=== PATIENT | male | born 1945 | race Caucasian/White ===

== ENCOUNTER 2021-01-29 07:06 | Inpatient (IN) ==
--- NOTE | 2021-01-10 11:19 | PAT Medication Instructions ---
Medication Instructions Date of Service January 10, 2021 Home Medications Lacto.acidophilus-Bif.animalis [Super Probiotic] 1 cap PO QAM acai siddiqi extract 1,000 mg PO QAM apalutamide [Erleada] 60 mg PO TID ascorbic acid (vitamin C) [Vitamin C] 1 g PO QAM aspirin 81 mg PO HS calcium 500 mg PO QAM cholecalciferol (vitamin D3) [Vitamin D3] 125 mcg PO QAM docusate sodium [Stool Softener] 200 mg PO QAM eqrsbslv-nooc-ktmnbc-hyalur ac [Joint Support] 1 cap PO BID leuprolide (6 month) [Lupron Depot (6 Month)] 45 mg IM UD loratadine 10 mg PO QAM magnesium 100 mg PO BID metoprolol tartrate 25 mg PO BID multivitamin 1 tab PO QAM nitroglycerin [Nitrostat] 0.4 mg SUBLINGUAL UD PRN omega-3 fatty acids-fish oil [[place] 3 Fish Oil] 2 cap PO QAM pantoprazole 40 mg PO QAM simvastatin 10 mg PO HS tamsulosin 0.4 mg PO HS vitamin E 400 unit PO QAM zinc 50 mg PO QAM Continue as directed leuprolide (6 month) [Lupron Depot (6 Month)] 45 mg IM UD nitroglycerin [Nitrostat] 0.4 mg SUBLINGUAL UD PRN (if needed) ASK your prescriber and surgeon apalutamide [Erleada] 60 mg PO TID aspirin 81 mg PO HS STOP taking 2 weeks before surgery (or as soon as possible if surgery is within 2 weeks) acai siddiqi extract 1,000 mg PO QAM kqrhizon-rlcg-fgpzrb-hyalur ac [Joint Support] 1 cap PO BID omega-3 fatty acids-fish oil [[place] 3 Fish Oil] 2 cap PO QAM vitamin E 400 unit PO QAM DO NOT take the morning of surgery Lacto.acidophilus-Bif.animalis [Super Probiotic] 1 cap PO QAM ascorbic acid (vitamin C) [Vitamin C] 1 g PO QAM calcium 500 mg PO QAM cholecalciferol (vitamin D3) [Vitamin D3] 125 mcg PO QAM docusate sodium [Stool Softener] 200 mg PO QAM loratadine 10 mg PO QAM magnesium 100 mg PO BID multivitamin 1 tab PO QAM zinc 50 mg PO QAM Take morning of surgery With a small sip of water, OTHERWISE NOTHING TO EAT OR DRINK AFTER MIDNIGHT: metoprolol tartrate 25 mg PO BID pantoprazole 40 mg PO QAM Take evening before surgery magnesium 100 mg PO BID metoprolol tartrate 25 mg PO BID simvastatin 10 mg PO HS tamsulosin 0.4 mg PO HS Other Notes If you have any questions please call us at [phone] or [phone] or [phone] or [phone]
--- NOTE | 2021-01-15 11:34 | Anesthesiology Consultation ---
Date of Service January 15, 2021 Assessment & Plan (1) Encounter for pre-operative examination: Chart Review Chart Review: Acceptable Risk for Surgery (pending preop UA, surgeon ordered PCP clearance with response on anemia and CXR findings, and preop Covid testing results ) and Patient seen in Pre Admission Testing Pt could not give UA at PAT- was given order and supplies and will drop off in [facility]. -Awaiting surgeon ordered PCP clearance scheduled 01/21/21- will send note re: anemia and CXR findings to address at clearance appt Cardio Clearance letter 12/29/20= "low to intermediate cardiac risk." Last seen by cardio 12/23/20= presents for follow up visit. Continue current cardiac meds. Follow up with PCP. All recent testing reviewed by cardio. Monitor BP at home. Hx of carotid narrowing- ordered carotid US. (Not scheduled until 01/29/21- no carotid bruits noted on 01/15/21 PAT exam) Per PAT appointment 01/15/2021, patient denies any recent travel. No known Covid infection in the past 90 days. Only wears mask when requiredavoids large crowds in public settings. Patient vaccinated for Covid. No known Covid positive contacts or Covid related symptoms. Preop Covid testing scheduled 01/27/21= will await results. Educated on importance of self quarantining, social distancing and wearing mask in public both for the patient after Covid testing done Teaching & Discussion Pre-Anesthesia Teaching/Discussion Notes: Instructed NPO after midnight before surgery,except medications with 15 cc of water. Medication instructions provided according to the PAT guidelines. History Surgery Operation Date: 01/29/21 10:05 Proposed Procedures p L3-L5 Decompression Fusion;Spinal Cord Monitoring - Christophe Mariee, Height/Weight Height: 5 ft 11 in Weight: 86.4 kg Allergies Allergy/AdvReac Type Severity Reaction Status Date / Time Penicillins Allergy Intermediate HALLUCINATI Verified 01/09/21 11:28 ONS Medications Home Medications Medication Instructions Recorded Confirmed Last Taken Lacto.acidophilus-Bif.animalis 1 cap PO QAM 01/09/21 01/09/21 Unknown [Super Probiotic] acai siddiqi extract 1,000 mg PO QAM 01/09/21 01/09/21 Unknown apalutamide [Erleada] 60 mg PO TID 01/09/21 01/09/21 Unknown ascorbic acid (vitamin C) [Vitamin 1 g PO QAM 01/09/21 01/09/21 Unknown C] aspirin 81 mg PO HS 01/09/21 01/09/21 Unknown calcium 500 mg PO QAM 01/09/21 01/09/21 Unknown cholecalciferol (vitamin D3) 125 mcg PO QAM 01/09/21 01/09/21 Unknown [Vitamin D3] docusate sodium [Stool Softener] 200 mg PO QAM 01/09/21 01/09/21 Unknown eszfgzws-mrjo-ksrpmk-hyalur ac 1 cap PO BID 01/09/21 01/09/21 Unknown [Joint Support] leuprolide (6 month) [Lupron Depot 45 mg IM UD 01/09/21 01/09/21 Unknown (6 Month)] loratadine 10 mg PO QAM 01/09/21 01/09/21 Unknown magnesium 100 mg PO BID 01/09/21 01/09/21 Unknown metoprolol tartrate 25 mg PO BID 01/09/21 01/09/21 Unknown multivitamin 1 tab PO QAM 01/09/21 01/09/21 Unknown nitroglycerin [Nitrostat] 0.4 mg SUBLINGUAL UD PRN 01/09/21 01/09/21 Unknown omega-3 fatty acids-fish oil 2 cap PO QAM 01/09/21 01/09/21 Unknown [[place] 3 Fish Oil] pantoprazole 40 mg PO QAM 01/09/21 01/09/21 Unknown simvastatin 10 mg PO 01/09/21 01/09/21 Unknown tamsulosin 0.4 mg PO 01/09/21 01/09/21 Unknown vitamin E 400 unit PO QAM 01/09/21 01/09/21 Unknown zinc 50 mg PO QAM 01/09/21 01/09/21 Unknown Past Medical History Medical History Aortic stenosis S/p bioprosthetic AVR 2017 CAD (coronary artery disease) S/p CABG 2018- 1 vessel S/p cardiac stent 2009 to Cx artery Degenerative disc disease History of kidney cancer s/p left nephrectomy (1987) Hyperlipidemia Hypertension FOLLOWS WITH DR. DIEGO IN [place] Prostate cancer Dx'ed 2000 - s/p prostatectomy ; s/p XRT in 2004 Currently on Lupron injections and Erleada Urinary incontinence Exercise / Class Metabolic Activity III < 4 Walking/Shop/Light housework (no chest pain or SOB with short distancs, flat surface ambulation- uses walker secondary to lumbar issues ) Past Family History Family History Other No family history of adverse response to anesthesia Past Surgical History Surgical History Aortic valve replaced 2018 AT [facility] H/O left nephrectomy H/O prostate biopsy H/O vasectomy History of bladder surgery [facility] SURGERY IN [facility]>2 PROCEDURES (RECENT PROCEDURES) History of cardiac cath 3 WEEKS AGO AT [facility] History of cholecystectomy History of colonoscopy History of coronary artery bypass graft 2018 AT [facility] History of cystoscopy MULTIPLE History of heart artery stent 1 STENT PLACED 2009 History of prostatectomy History of tonsillectomy History of tooth extraction Past Anesthesia History No Hx of Anesthesia Complications and No Family Hx of Anesthesia Complications (with exception to brother- PONV ) History of PONV No Hx of Motion Sickness and History of PONV (one episdoe with cardiac stent placement in 2009- no issues ) Social History Smoking Status: Never smoker Hx Alcohol Use: No substance use type: does not use Review of Systems Hx of snoring in the past- no recent issues with snoring. Patient denies chest pain, shortness of breath, dyspnea on exertion, reflux, cough, wheezing, palpitations. No hx of seizures, stroke. No hx of blood clots or blood transfusions Physical Exam Vital Signs VITALS BP 131/69 P 70 TEMP 98.0 SP02 97% RESP 16 Constitutional no acute distress ENMT Mouth: no TMJ clicking Thyromental Distance: > or= 3.5 Finger Breadths (4.0) Mallampati Class: II Full dentures on top and bottom Neck neck extension not limited Respiratory normal respiratory effort; no respiratory distress Auscultation: lungs clear to auscultation bilaterally; no wheezes Cardiovascular Rate/Rhythm: regular rate and regular rhythm Heart Sounds: no murmur Vessels: no carotid bruit Musculoskeletal Spine: no pain with cervical ROM Extremities: extremities normal to inspection Psychiatric Orientation: alert Lab Results Anesthesia Preop Results Results Anesthesia Widget: WBC 9.83 K/uL (4.8-10.8) 01/15/21 Hgb 9.7 g/dL (14.0-18.0) L 01/15/21 Hct 31.4 % (42-52) L 01/15/21 Plt 524 K/uL (130-400) H 01/15/21 Na 137 mmol/L (136-145) 01/15/21 K 4.6 mmol/L (3.5-5.1) 01/15/21 Cl 103 mmol/L (98-107) 01/15/21 CO2 28 mmol/L (21-32) 01/15/21 BUN 20 mg/dl (7-18) H 01/15/21 Creat 0.84 mg/dl (0.6-1.4) 01/15/21 Glucose Level 126 mg/dl (70-99) H 01/15/21 PT 11.1 Seconds (9.0-12.0) 01/15/21 PTT 29.0 Seconds (21.0-31.0) 01/15/21 INR 1.1 (0.9-1.1) 01/15/21 Blood Type B Negative 01/15/21 Antibody Screen NEGATIVE 01/15/21 Lab Comments: Surgeon office informed of anemia Testing Electrocardiogram Date: 12/23/20 Sinus rhythm at 81 bpm. Vertical axis. Normal variant of EKG. Chest X-Ray Date: 01/15/21 Questionable opacity at the right infrahilar region which could represent atelectasis. Pneumonia is also possible in appropriate clinical settings. Status post aortic valve placement. Atherosclerosis. Echocardiogram Date: 12/10/20 EF: 55 to 60% LV Function: normal Other Findings: + diastolic dysfunction (Grade 1); no LVH Abnormal septal motion. Mild right ventricular enlargement with otherwise normal cardiac chamber dimensions. There is an aortic valve replacement, trace aortic insufficiency. Bioprosthetic aortic valvepeak gradient 18 mmHg and a mean gradient of 9 mmHg. Mild MR. Mild to moderate TR. Mild pulmonary wyossiifelmd40-90 mmHg. Stress Test Date: 12/10/20 Type: nuclear Based upon EKG criteria, this test is negative. Based upon the nuclear imaging findings, there is a lateral wall ischemia. Study is moderately abnormal. It has changed from previous studies. Cardiac catheterization or a follow-up appointment to discussed results is recommended. Cardiac Catheterization Date: 12/18/20 Proximal RCA lesion 30% stenosis. Distal RCA lesion 40% stenosis. Proximal to mid LAD 50% stenosis. Mid LAD lesion is 100% stenosis. Patent BURCIAGA to LAD, otherwise mild residual CAD. No evidence of aortic insufficiency.
[~2021-01-29 07:06] MED LIST: ACETAMINOPHEN 500 MG TAB PO SCH; CLINDAMYCIN 600 MG/54 ML BAG IV SCH; CeleBREX 200 MG CAP PO SCH; GABAPENTIN 300 MG CAP PO SCH; LR 15ML/HR IV SCH
[2021-01-29] MEDS ORDERED: fentaNYL citrate 100 MCG/2 ML VIAL ONE (08:11)
[2021-01-29] MEDS ORDERED: PROPOFOL IV EMULSION 10 MG/ML 20 ML VIAL IV ONE (08:11)
[2021-01-29] MEDS ORDERED: DEXAMETHASONE SOD INJ 4 MG/ML VIAL ONE (08:11)
[2021-01-29] MEDS ORDERED: LIDOCAINE 2% 2 ML VIAL/AMP(20MG/ML) INFIL ONE (08:11)
[2021-01-29] MEDS ORDERED: HYDROmorphone INJ 2 MG/ML SYR/VIAL ONE (08:11)
[2021-01-29] MEDS ORDERED: MIDAZOLAM HCL 1 MG/ML 2ML VIAL ONE (08:11)
[2021-01-29] MEDS ORDERED: ROCURONIUM BROMIDE 10 MG/ML 5 ML VIAL IV ONE (08:13)
[2021-01-29] MEDS ORDERED: ePHEDrine sulfate 50 MG/ML AMP IV PRN (09:16)
[2021-01-29] MEDS ORDERED: ATROPINE SULFATE 0.1 MG/ML 10ML SYR IV PRN (09:16)
[2021-01-29] MEDS ORDERED: HYDROmorphone INJ 2 MG/ML SYR/VIAL IV PRN (09:16)
[2021-01-29] MEDS ORDERED: fentaNYL citrate 100 MCG/2 ML VIAL IV PRN (09:16)
[2021-01-29] MEDS ORDERED: ONDANSETRON INJ 2 MG/ML 2 ML VIAL IV PRN ×2 (09:16→13:26)
--- NOTE | 2021-01-29 09:40 | History & Physical Bridge Note ---
Date of Service January 29, 2021 History & Physical Bridge Note I have examined the patient, reviewed the History & Physical and in the interval since the performance of the History & Physical I have noted the following changes of clinical significance: no changes noted
--- NOTE | 2021-01-29 09:41 | History & Physical Report ---
Date of Service January 29, 2021 Assessment & Plan (1) Neurogenic claudication due to lumbar spinal stenosis: Plan: L3-L5 decompression fusion History of Present Illness Chief Complaint: Back and bilateral leg pain Primary Care Provider: Etienne Nelson This is a 75-year-old male presents with chronic persistent back and bilateral leg pain. After failing course of nonoperative care is here for surgical intervention. Allergies Allergy/AdvReac Type Severity Reaction Status Date / Time Penicillins Allergy Intermediate HALLUCINATI Verified 01/29/21 07:38 ONS Home Medications Medication Instructions Recorded Confirmed Type Lactobacillus 1 cap PO QAM 01/09/21 01/29/21 History acidophilus-Bifidobac.animalis 20 billion cell capsule (Super Probiotic) acai siddiqi extract 500 mg capsule 1,000 mg PO QAM 01/09/21 01/29/21 History apalutamide 60 mg tablet (Erleada) 60 mg PO TID 01/09/21 01/29/21 History ascorbic acid (vitamin C) 1,000 mg 1 g PO QAM 01/09/21 01/29/21 History tablet (Vitamin C) aspirin 81 mg tablet 81 mg PO HS 01/09/21 01/29/21 History calcium 500 mg tablet 500 mg PO QAM 01/09/21 01/29/21 History cholecalciferol (vitamin D3) 125 125 mcg PO QAM 01/09/21 01/29/21 History mcg (5,000 unit) tablet (Vitamin D3) docusate sodium 100 mg tablet 200 mg PO QAM 01/09/21 01/29/21 History (Stool Softener) glucosamin 375 mg-chond 300 1 cap PO BID 01/09/21 01/29/21 History mg-collagen 50 mg-hyaluronic acid 2 mg cap leuprolide (6 month) 45 mg 45 mg IM UD 01/09/21 01/29/21 History intramuscular syringe kit (Lupron Depot) loratadine 10 mg tablet 10 mg PO QAM 01/09/21 01/29/21 History magnesium 100 mg tablet 100 mg PO BID 01/09/21 01/29/21 History metoprolol tartrate 25 mg tablet 25 mg PO BID 01/09/21 01/29/21 History multivitamin 1 tab PO QAM 01/09/21 01/29/21 History nitroglycerin 0.4 mg sublingual 0.4 mg SUBLINGUAL UD PRN 01/09/21 01/29/21 History tablet (Nitrostat) omega-3 fatty acids-fish oil 684 2 cap PO QAM 01/09/21 01/29/21 History mg-1,200 mg capsule,delayed release pantoprazole 40 mg tablet,delayed 40 mg PO QAM 01/09/21 01/29/21 History release simvastatin 10 mg tablet 10 mg PO HS 01/09/21 01/29/21 History tamsulosin 0.4 mg capsule 0.4 mg PO HS 01/09/21 01/29/21 History vitamin E 200 unit tablet 400 unit PO QAM 01/09/21 01/29/21 History zinc 50 mg tablet 50 mg PO QAM 01/09/21 01/29/21 History Past Med/Surg History Medical History Aortic stenosis S/p bioprosthetic AVR 2017 CAD (coronary artery disease) S/p CABG 2018- 1 vessel S/p cardiac stent 2009 to Cx artery Degenerative disc disease History of kidney cancer s/p left nephrectomy (1987) Hyperlipidemia Hypertension FOLLOWS WITH DR. DIEGO IN [place] Prostate cancer Dx'ed 2000 - s/p prostatectomy ; s/p XRT in 2004 Currently on Lupron injections and Erleada Urinary incontinence Surgical History Aortic valve replaced 2017 AT [facility] H/O left nephrectomy H/O prostate biopsy H/O vasectomy History of bladder surgery SPHINCTER SURGERY IN [facility]>2 PROCEDURES (RECENT PROCEDURES) History of cardiac cath 3 WEEKS AGO AT [facility] History of cholecystectomy History of colonoscopy History of coronary artery bypass graft 2018 AT [facility] History of cystoscopy MULTIPLE History of heart artery stent 1 STENT PLACED 2009 History of prostatectomy History of tonsillectomy History of tooth extraction Family History Other No family history of adverse response to anesthesia Social History Smoking Status: Never smoker Second Hand Exposure: No; Hx Alcohol Use: No Preferred Language: Romansh Datastage Developer Required: No Beliefs That Will Affect Care: None Current Living Situation: Spouse Feels Safe at Home: Yes Safety Concerns: Feels Safe At This Time Assistive Devices: Denture - Upper, Denture - Lower, Glasses, Hearing Aid - Bilateral and Walker Physical Exam Physical Exam: Patient is alert and oriented Heart regular in rhythm Lungs clear to auscultation Results [facility] ([facility]) Vital Signs (Past 12 Hours) Vital Signs Temp Pulse Resp BP Pulse Ox 01/29/21 07:56 36.9 C 75 16 143/72 H 96
[2021-01-29] MEDS ORDERED: BUPIVACAINE/EPINEPHRINE 0.5% MPF 1:200,000 30 ML VIAL ONE (09:53)
[2021-01-29] MEDS ORDERED: FLOSEAL HEMOSTATIC MATRIX 10ML TOP ONE (11:45)
[2021-01-29] MEDS ORDERED: NEOSTIGMINE METHYLSULFATE 1 MG/ML 10ML VIAL ONE (11:46)
[2021-01-29] MEDS ORDERED: GLYCOPYRROLATE 0.2 MG/ML VIAL ONE (11:46)
--- NOTE | 2021-01-29 11:55 | Operative Report ---
Post Operative Report Pre & Post Diagnosis Operation Date: 01/29/21 09:05 Pre-Op Diagnosis: Neurogenic Claudication due to Lumbar Spinal Stenosis Post-Op Diagnosis: Neurogenic Claudication due to Lumbar Spinal Stenosis I identified the patient and participated in the time-out.: Yes Procedure Operation Date: 01/29/21 09:05 Actual Procedures #1 lumbar decompression bilateral medial facetectomies and foraminotomies L2-3, L3-4 and L4-5. #2 posterior spinal fusion L3 445. #3 placement posterior instrumentation L3-4 L4-5 per #4 interbody fusion L4-5. #5 placement peek cage 12 x 26 mm at L4-5. #6 placement locally harvested morselized autograft in the posterior gutters. #7 placement infuse collagen sponge, master graft in the posterior lateral gutters and I factor interbody space. Surgeon Christophe Mariee DO Assistant Track And Field Coach Becky Bynum Estimated Blood Loss 100 Findings Consistent with Post-Op Diagnosis Specimens None Indications This is a 75-year-old male presents with above-mentioned diagnosis after failing course of nonoperative care is here for the above-mentioned procedure. Description of Procedure Patient was met with identified informed consent obtained. Patient was then taken to the operative suite underwent a patient placed in prone position injectable top less than frame. All bony prominences well-padded eyes inspected to ensure no external proximal spine. This point the lumbar spine was prepped and draped in a sterile fashion. Sharp dissection with the assistance pericardial form down to and exposing the lamina and transverse processes of L3 L4-5 bilaterally. From caudal cephalad fashion complete laminectomy of L4 L3 and partial laminectomy of L2 was performed including bilateral medial facetectomies and foraminotomies addressing severe spinal stenosis. Pedicle screws were then placed in L3-L4-L5 bilaterally with assistance of fluoroscopy the proper sized prosper placed. By way of a transforaminal portion radically discectomy of L4-5 was performed endplates curetted to subcortical being bone and a 12 x 26 mm peek cage filled I factor tapped in position. The rods then locked in final position bilaterally. The transverse processes of L3 and L4 and L5 burred to subcortically bone. Infuse collagen sponge master graft local autograft was placed in the posterior gutters. 15 round NATALIE drain inserted. The incision was then closed with 1 Vicryl fascia 2-0 Vicryl subcutaneously and 4 Monocryl for final skin closure. Steri-Strip sterile dressings placed. Patient waken taken PACU stable condition. Please note spinal cord monitoring was utilized at the procedure no changes noted. Lastly Becky Bynum was present at the entire surgery involved the patient positioning complex portions of the surgery and fascial closure. I attest to the content of the Intraoperative Record and any orders documented therein. Any exceptions are noted below.
--- NOTE | 2021-01-29 12:47 | Fluoroscopy Report ---
FL lumbar spine 2-3V CLINICAL HISTORY: Spinal decompression and fusion COMPARISON STUDY: None FLUOROSCOPY TIME: 19 seconds. NUMBER OF FLUOROSCOPIC IMAGES: 2 FINDINGS: 2 intraoperative fluoroscopic spot images demonstrate a lower lumbar discectomy and interbo dy fusion with posterior 3 level pedicle screw fixation. Is a is unclear from the intraoperative imag es whether the surgery was performed at the L3-5 level or L4-S1 level. Correlation with prior radiogr aphs would be necessary to confirm the level of surgery. IMPRESSION: Intraoperative fluoroscopic spot images demonstrating a spinal decompression and fusion. ACT 112: Negative or not required by law. Electronically signed by: Joey Santana M.D. 01/29/2021 12:45 PM
[2021-01-29] MEDS ORDERED: PROMETHAZINE HCL 12.5 MG in SODIUM CHLORIDE 0.9% 50 ML IV STA (12:51)
--- NOTE | 2021-01-29 13:04 | Anesthesiology Progress Note ---
Date of Service January 29, 2021 Anesthesia Post Procedure Vital Signs Vital Signs: Temp Pulse Resp BP Pulse Ox 01/29/21 12:55 72 14 156/74 H 97 01/29/21 12:45 36.1 C L 76 14 159/79 H 98 01/29/21 12:35 74 12 142/65 H 95 01/29/21 12:25 73 14 139/65 99 01/29/21 12:15 74 12 131/69 100 01/29/21 12:09 36.3 C L 74 12 125/64 100 01/29/21 07:56 36.9 C 75 16 143/72 H 96 Pain Intensity Other: Pain Intensity: 8 Transfer of Care Handoff Completed per policy Notes Mental Status: alert / awake / arousable and participated in evaluation Patient Amnestic to Procedure: Yes Nausea / Vomiting: adequately controlled Pain: adequately controlled Airway Patency, RR, SpO2: stable & adequate BP & HR: stable & adequate Hydration State: stable & adequate Anesthetic Complications: no major complications apparent
[2021-01-29] MEDS ORDERED: diphenhydrAMINE Capsule 25 MG CAP PO PRN (13:26)
[2021-01-29] MEDS ORDERED: SOD PHOSPHATE/SOD BIPHOSPHATE ENEMA 132 ML BTL PR PRN (13:26)
[2021-01-29] MEDS ORDERED: FAMOTIDINE 20 MG TAB PO PRN (13:26)
[2021-01-29] MEDS ORDERED: LORazepam 0.5 MG/1 ML VIAL IV PRN (13:26)
[2021-01-29] MEDS ORDERED: ALUMINUM/MAGNESIUM SUSP 30 ML UDC PO PRN (13:26)
[2021-01-29] MEDS ORDERED: METOCLOPRAMIDE HCL INJ 5 MG/ML 2 ML VIAL IV PRN (13:26)
[2021-01-29] MEDS ORDERED: DO NOT ADMINISTER FLU VACCINE PRN (13:26)
[2021-01-29] MEDS ORDERED: ACETAMINOPHEN 1,000 MG/100 ML VIAL IV PRN (13:26)
[2021-01-29] MEDS ORDERED: ONDANSETRON 4 MG OD TAB PO PRN (13:26)
[2021-01-29] MEDS ORDERED: PROMETHAZINE HCL 12.5 MG in SODIUM CHLORIDE 0.9% 50 ML IV PRN (13:26)
[2021-01-29] MEDS ORDERED: hydrOXYzine HCl 25 MG TAB PO PRN (13:26)
[2021-01-29] MEDS ORDERED: MAGNESIUM HYDROXIDE SUSP 30 ML UDC PO PRN (13:26)
[2021-01-29] MEDS ORDERED: NITROGLYCERIN SL 0.4 MG/TAB TAB SL PRN (13:26)
[2021-01-29] MEDS ORDERED: DO NOT ADMINISTER PNEUMOCOCCAL VACCINE PRN (13:26)
[2021-01-29] MEDS ORDERED: NALOXONE HCL 0.4 MG/1 ML VIAL/CARP IV PRN (13:26)
[2021-01-29] MEDS ORDERED: HYDROmorphone INJ 0.5 MG/0.5 ML SYR IV PRN (13:26)
[2021-01-29] MEDS ORDERED: LORazepam 0.5 MG TAB PO PRN (13:26)
[2021-01-29] MEDS ORDERED: HYDROmorphone INJ 1 MG/ML SYRINGE IV PRN (13:26)
[2021-01-29] MEDS: SODIUM CHLORIDE 0.9% 1000ML 1,000 ML IV SCH ×2 (14:14→23:42)
--- NOTE | 2021-01-29 14:44 | Consultation ---
Date of Consultation January 29, 2021 Assessment & Plan (1) Status post lumbar surgery: (2) Neurogenic claudication due to lumbar spinal stenosis: Post op day# 0 S/P L2-L5 decompression and fusion by Dr Mariee EBL #100 mL -pain management per ortho -wound management per ortho -PT/OT as appropriate -DVT prophylaxis per ortho -incentive spirometry -monitor H&H for acute blood loss anemia; preop Hgb: 9.7 (3) CAD (coronary artery disease): H/O CABG 2018 Denies chest pain, shortness of breath Continue aspirin, metoprolol tartrate, simvastatin (4) Aortic stenosis: S/P bioprosthetic AVR in 2018 (5) Hypertension: Continue metoprolol tartrate (6) History of kidney cancer: (7) Solitary kidney: S/p left nephrectomy Preop creatinine: 0.8 (8) Prostate cancer: S/p prostatectomy, radiation Erleada, Lupron on hold Continue tamsulosin DVT Prophylaxis SCDs per Ortho spine Disposition per primary service Follows with Dr Etienne Nelson in [place], [place] for routine care Pt was seen and care coordinated with Dr Hager. See addendum Thank you for this consultation. We will follow the patient with you during their hospital stay. You can reach a [facility]02 via [facility] Supervising Physician Co-Signing Physician Notes Patient is a 75-year-old male with history of coronary artery disease S/P CABG, aortic stenosis, history of prostate cancer, hypertension, hyperlipidemia and other medical problems was consulted for postop medical management after having L2-L5 decompression and fusion surgery by Dr. Mariee. Patient is doing well postoperatively. He denies any significant pain at surgical site. Also denies any chest pain, shortness of breath, dizziness, nausea, abdominal pain. On exam patient is moderately built and nourished, no apparent distress, normocephalic atraumatic, lungs-normal breath sounds, clear to auscultation,+ CABG scar, S1- S2,+ murmur, no pedal edema, abdomen soft, nontender, normal bowel sounds, back- surgical site in dressing, alert, awake, oriented, grossly no focal deficits. S/P Lumbar decompression fusion surgery pod#0 monitor for postop anemia. Continue bowel regimen to prevent constipation. DVT prophylaxis, activity as per primary team. Continue home medications for coronary artery disease. Monitor renal function given history of nephrectomy. I personally reviewed the record. Patient is interviewed and examined at bedside. Patient's care is coordinated with Tisha Mejia PA-C. Please refer to the documentation above for details of patient's presentation and for discussion of other issues. History of Present Illness Requesting Physician: Dr. Mariee Reason for Consultation: Postop medical management Attending Physician: Christophe Mariee, DO History of Present Illness Patient is 75-year-old male with PMH CAD s/p CABG in 2018, aortic stenosis s/p bioprosthetic aortic valve replacement in 2018, kidney CA s/p left nephrectomy, prostate CA s/p prostatectomy and radiation, HTN, HLD seen in consultation for postop medical management s/p L2-L5 decompression and fusion today by Dr. Mariee. Postop patient reports still feeling drowsy. States has slight nausea, no vomiting. Has not drank or eaten yet post op. Has Barron cath in place. Denies any current pain, lower extremity pain or paresthesias. Denies fever/chills, diaphoresis, diarrhea, WILBURN, dizziness, s yncope, vision changes, neck pain, CP, SOB, orthopnea, palpitations, cough, sore throat, otalgia, rhinorrhea, abdominal pain, extremity edema, rashes, urinary symptoms. Allergies Allergy/AdvReac Type Severity Reaction Status Date / Time Penicillins Allergy Intermediate HALLUCINATI Verified 01/29/21 07:38 ONS Home Medications Medication Instructions Recorded Confirmed Type Lactobacillus 1 cap PO QAM 01/09/21 01/29/21 History acidophilus-Bifidobac.animalis 20 billion cell capsule (Super Probiotic) acai siddiqi extract 500 mg capsule 1,000 mg PO QAM 01/09/21 01/29/21 History apalutamide 60 mg tablet (Erleada) 60 mg PO TID 01/09/21 01/29/21 History ascorbic acid (vitamin C) 1,000 mg 1 g PO QAM 01/09/21 01/29/21 History tablet (Vitamin C) aspirin 81 mg tablet 81 mg PO HS 01/09/21 01/29/21 History calcium 500 mg tablet 500 mg PO QAM 01/09/21 01/29/21 History cholecalciferol (vitamin D3) 125 125 mcg PO QAM 01/09/21 01/29/21 History mcg (5,000 unit) tablet (Vitamin D3) docusate sodium 100 mg tablet 200 mg PO QAM 01/09/21 01/29/21 History (Stool Softener) glucosamin 375 mg-chond 300 1 cap PO BID 01/09/21 01/29/21 History mg-collagen 50 mg-hyaluronic acid 2 mg cap leuprolide (6 month) 45 mg 45 mg IM UD 01/09/21 01/29/21 History intramuscular syringe kit (Lupron Depot) loratadine 10 mg tablet 10 mg PO QAM 01/09/21 01/29/21 History magnesium 100 mg tablet 100 mg PO BID 01/09/21 01/29/21 History metoprolol tartrate 25 mg tablet 25 mg PO BID 01/09/21 01/29/21 History multivitamin 1 tab PO QAM 01/09/21 01/29/21 History nitroglycerin 0.4 mg sublingual 0.4 mg SUBLINGUAL UD PRN 01/09/21 01/29/21 History tablet (Nitrostat) omega-3 fatty acids-fish oil 684 2 cap PO QAM 01/09/21 01/29/21 History mg-1,200 mg capsule,delayed release pantoprazole 40 mg tablet,delayed 40 mg PO QAM 01/09/21 01/29/21 History release simvastatin 10 mg tablet 10 mg PO HS 01/09/21 01/29/21 History tamsulosin 0.4 mg capsule 0.4 mg PO HS 01/09/21 01/29/21 History vitamin E 200 unit tablet 400 unit PO QAM 01/09/21 01/29/21 History zinc 50 mg tablet 50 mg PO QAM 01/09/21 01/29/21 History oxycodone 5 mg tablet 5 mg PO Q6H PRN #30 tab 01/29/21 Rx tramadol 50 mg tablet 50 mg PO Q6H PRN #30 tab 01/29/21 Rx Patient History Medical History Aortic stenosis S/p bioprosthetic AVR 2017 CAD (coronary artery disease) S/p CABG 2018- 1 vessel S/p cardiac stent 2009 to Cx artery Degenerative disc disease History of kidney cancer s/p left nephrectomy (1987) Hyperlipidemia Hypertension FOLLOWS WITH DR. DIEGO IN [place] Prostate cancer Dx'ed 2000 - s/p prostatectomy ; s/p XRT in 2004 Currently on Lupron injections and Erleada Urinary incontinence Surgical History Aortic valve replaced 2017 AT ON LICENSE OF [facility] H/O left nephrectomy H/O prostate biopsy H/O vasectomy History of bladder surgery SPHINCTER SURGERY IN [facility]>2 PROCEDURES (RECENT PROCEDURES) History of cardiac cath 3 WEEKS AGO AT [facility] History of cholecystectomy History of colonoscopy History of coronary artery bypass graft 2018 AT ON LICENSE OF [facility] History of cystoscopy MULTIPLE History of heart artery stent 1 STENT PLACED 2009 History of prostatectomy History of tonsillectomy History of tooth extraction Family History Other No family history of adverse response to anesthesia Social History Smoking Status: Never smoker Second Hand Exposure: No; Hx Alcohol Use: No Preferred Language: Frisian Food Beverage Server Required: No Beliefs That Will Affect Care: None Current Living Situation: Spouse Feels Safe at Home: Yes Safety Concerns: Feels Safe At This Time Assistive Devices: None Review of Systems Review of Systems: All systems reviewed & are unremarkable except as noted in HPI & below Physical Exam Physical Exam: General: no acute distress, droswy, WDWN Head: normocephalic, atraumatic Eyes: conjunctiva non-injected, anicteric ENT: hard of hearing, normal inspection external ears, nose, mucous membranes moist Neck: supple, trachea midline Lungs: clear, no respiratory distress, no wheezing/rhonchi/rales CV: RRR, +murmur, no pretibial edema Abd: normal BS, soft, non-tender Back: +NATALIE drain in place with serosanguineous drainage Ext: no cyanosis, no calf tenderness, pedal pushes and pulls intact bilaterally Neuro: Drowsy, awakens to voice, alert and oriented x 3, no focal deficits noted, normal affect Skin: warm, dry Results & Data ([facility]) Vital Signs (Past 12 Hours) Vital Signs Temp Pulse Resp BP BP Pulse Ox 01/29/21 14:25 36.4 C L 74 16 125/71 96 01/29/21 13:55 36.3 C L 74 16 128/73 97 01/29/21 13:05 36.3 C L 78 19 152/73 H 98 01/29/21 12:55 72 14 156/74 H 97 01/29/21 12:45 36.1 C L 76 14 159/79 H 98 01/29/21 12:35 74 12 142/65 H 95 01/29/21 12:25 73 14 139/65 99 01/29/21 12:15 74 12 131/69 100 01/29/21 12:09 36.3 C L 74 12 125/64 100 01/29/21 07:56 36.9 C 75 16 143/72 H 96
[2021-01-29] MEDS: ceFAZolin 2000MG 2,000 MG/15 ML SYR IV SCH (18:31)
[2021-01-29] MEDS: SIMVASTATIN 10 MG TAB PO SCH (20:15)
[2021-01-29] MEDS: MAGNESIUM OXIDE 400 MG TAB PO SCH (20:15)
[2021-01-29] MEDS: TAMSULOSIN HCL 0.4 MG CAP PO SCH (20:16)
[2021-01-29] MEDS: ASPIRIN 81 MG ECTAB PO SCH (20:16)
[2021-01-29] MEDS: METOPROLOL TARTRATE 25 MG TAB PO SCH (20:16)
[2021-01-29] MEDS: DOCUSATE SODIUM/SENNA 50/8.6MG TAB PO SCH (20:17)
[2021-01-30] MEDS: traMADol HCL 50 MG TABLET PO PRN ×2 (01:16→09:33)
[2021-01-30] MEDS: oxyCODONE HCL IR 5 MG TAB (IMMEDIATE RELEASE) PO PRN ×2 (01:47→08:48)
[2021-01-30] MEDS: ceFAZolin 2000MG 2,000 MG/15 ML SYR IV SCH (03:31)
[2021-01-30] MEDS: POLYETHYLENE (MIRALAX) 17 GM PACK PO SCH ×3 (06:04→18:45)
[2021-01-30 07:46] LABS: Basophils # (auto) 0.01 K/uL (0-0.2); Basophils % (auto) 0.1 %; Eosinophils # (auto) 0.05 K/uL (0-0.5); Eosinophils % (auto) 0.6 %; Hematocrit (blood only) 25.8 % (42-52); Hemoglobin 7.9 g/dL (14.0-18.0); Immature Granulocytes # (auto) 0.03 K/uL (0.00-0.02); Immature Granulocytes % (auto) 0.3 %; Lymphocytes # (auto) 0.92 K/uL (1.2-3.4); Lymphocytes % (auto) 10.5 %; Mean Corpuscular Hemoglobin 24.2 pg (25-34); Mean Corpuscular Hgb Conc 30.6 g/dL (32-36); Mean Corpuscular Volume 78.9 fL (80-100); Mean Platelet Volume 7.7 fL (7.4-10.4); Monocytes # (auto) 0.84 K/uL (0.11-0.59); Monocytes % (auto) 9.6 %; Neutrophils # (auto) 6.93 K/uL (1.4-6.5); Neutrophils % (auto) 78.9 %; Platelet Count 304 K/uL (130-400); RDW Coefficient of Variation 16.2 % (11.5-14.5); RDW Standard Deviation 46.9 fL (36.4-46.3); Red Blood Count 3.27 M/uL (4.7-6.1); White Blood Count 8.78 K/uL (4.8-10.8)
[2021-01-30] MEDS: METOPROLOL TARTRATE 25 MG TAB PO SCH ×2 (08:03→21:01)
[2021-01-30] MEDS: MAGNESIUM OXIDE 400 MG TAB PO SCH ×2 (08:03→21:00)
[2021-01-30] MEDS: PANTOprazole 40 MG TAB PO SCH (08:03)
[2021-01-30] MEDS: MULTIVITAMIN TAB PO SCH (08:03)
[2021-01-30] MEDS: CHOLECALCIFEROL 1,000 UNITS 25 MCG TAB PO SCH (08:04)
[2021-01-30] MEDS: CALCIUM CARBONATE 1250MG TAB PO SCH (08:04)
[2021-01-30] MEDS: TOCOPHERYL, DL-ALPHA 100 UNITS CAP PO SCH (08:04)
[2021-01-30] MEDS: ADVANCED PROBIOTIC 1250 MG CAPSULE PO SCH (08:04)
[2021-01-30] MEDS: ZINC SULFATE 220 MG CAPSULE PO SCH (08:04)
[2021-01-30] MEDS: LORATADINE 10 MG TAB PO SCH (08:04)
[2021-01-30] MEDS: ASCORBIC ACID 500 MG TAB PO SCH (08:04)
[2021-01-30] MEDS: DOCUSATE SODIUM 100 MG CAP PO SCH (08:04)
[2021-01-30 08:08] LABS: Microcytosis Present
[2021-01-30 08:11] LABS: BUN Creatinine Ratio 16.6 (10-20); Calcium 8.4 mg/dl (8.5-10.1); Creatinine Clr Calc Pharmacy 87.9 ml/min; Est GFR (African American) 102.6 ml/min; Est GFR (Non-African American) 88.5 ml/min; Potassium 4.1 mmol/L (3.5-5.1)
--- NOTE | 2021-01-30 12:04 | Orthopedic Progress Note ---
Date of Service January 30, 2021 Assessment & Plan (1) Neurogenic claudication due to lumbar spinal stenosis: Plan: This time we are going to initiate physical therapy when he is feeling better. Monitor his NATALIE output monitor his hematocrit hopefully discharge home in the next few days. Admission and Anticipated Discharge Date Admission Date: January 29, 2021 Subjective Back pain controlled struggling with some nausea. No leg pain. Physical Exam Physical Exam: On exam is in the bed. Is good strength testing. Results & Data ([facility]) Vital Signs (Past 12 Hours) Vital Signs Temp Pulse Resp BP Pulse Ox 01/30/21 07:50 37.2 C 80 16 125/64 92 01/30/21 03:29 36.7 C 81 18 145/65 H 97
--- NOTE | 2021-01-30 18:53 | Hospitalist Progress Note ---
Date of Service January 30, 2021 Assessment & Plan (1) Status post lumbar surgery: Plan: As below (2) Neurogenic claudication due to lumbar spinal stenosis: Plan: Post op day# 1 S/P L2-L5 decompression and fusion by Dr Jaylene HOOKS #100 mL -pain management per ortho -wound management per ortho -PT/OT as appropriate -DVT prophylaxis per ortho -incentive spirometry -monitor H&H for acute blood loss anemia; preop Hgb: 9.7 -Globin dropped to 7.9 today -We will check CBC tomorrow again (3) CAD (coronary artery disease): Plan: H/O CABG 2018 Denies chest pain, shortness of breath Continue aspirin, metoprolol tartrate, simvastatin No cardiac symptoms (4) Aortic stenosis: Plan: S/P bioprosthetic AVR in 2018 (5) Hypertension: Plan: Continue metoprolol tartrate (6) History of kidney cancer: (7) Solitary kidney: Plan: S/p left nephrectomy Preop creatinine: 0.8 (8) Prostate cancer: Plan: S/p prostatectomy, radiation Erleada, Lupron on hold Continue tamsulosin DVT Prophylaxis SCDs per Ortho spine Disposition per primary service Follows with Dr Etienne Nelson in [place], [place] for routine care Admission and Anticipated Discharge Date Admission Date: January 29, 2021 Subjective 01/30/2021 The patient was seen and examined in medical floor He is a status post lumbar decompression fusion and has been doing fine Minimal pain at the back but denies any other symptoms Review of Systems Review of Systems: All systems reviewed and are unremarkable except as noted below Musculoskeletal: Back pain Physical Exam Physical Exam: Sitting on a chair without any acute distress Constitutional: well developed, well nourished and + ill appearing Eyes: PERRL, conjunctivae normal, anicteric sclerae ENMT: external ear and nose normal, oropharynx normal Neck: trachea midline, no thyromegaly Respiratory: normal respiratory effort, lungs clear to auscultation Cardiovascular: Rate/Rhythm: regular rate and regular rhythm Extremities: no edema Gastrointestinal (Abdomen): normal bowel sounds, soft, nontender, no hepatosplenomegaly Musculoskeletal: No acute arthritis in any joint Neurologic: moves all extremities Results & Data Results & Data ([facility]) Vital Signs (Past 12 Hours) Vital Signs Temp Pulse Resp BP Pulse Ox 01/30/21 15:22 36.9 C 78 16 133/72 96 01/30/21 07:50 37.2 C 80 16 125/64 92 Laboratory Results Short CBC 01/30/21 Range/Units 07:31 WBC 8.78 (4.8-10.8) K/uL Hgb 7.9 L (14.0-18.0) g/dL Hct 25.8 L (42-52) % Plt Count 304 (130-400) K/uL BMP 01/30/21 07:31 Sodium 134 L Potassium 4.1 Chloride 103 Carbon Dioxide 26 BUN 13 Creatinine 0.75 Glucose 127 H Calcium 8.4 L Medications Administered Current Inpatient Medications Acetaminophen (Acetaminophen 500 Mg Tab) 1,000 mg PO Q8H PRN PRN Reason: MILD Pain Scale 1,2,3 & Pre PT Stop: 02/28/21 13:25 Al Hydrox/Mg Hydrox/Simethicone (Aluminum/Magnesium Susp 30 Ml Udc) 30 ml PO Q6H PRN PRN Reason: Dyspepsia Stop: 02/28/21 13:25 Ascorbic Acid (Ascorbic Acid 500 Mg Tab) 1,000 mg PO [facility] Stop: 03/01/21 08:59 Last Admin: 01/30/21 08:04 Dose: 1,000 mg Documented by: Aspirin (Aspirin 81 Mg Ectab) 81 mg PO [facility] Stop: 02/28/21 20:59 Last Admin: 01/29/21 20:16 Dose: 81 mg Documented by: Bisacodyl (Bisacodyl 10 Mg Supp) 10 mg IL DAILY PRN PRN Reason: Constipation Stop: 03/02/21 07:59 Calcium Carbonate (Calcium Carbonate 1250mg Tab) 1,250 mg PO [facility] Stop: 03/01/21 08:59 Last Admin: 01/30/21 08:04 Dose: 1,250 mg Documented by: Diphenhydramine HCl (Diphenhydramine Capsule 25 Mg Cap) 25 mg PO Q6H PRN PRN Reason: Allergic Rhinitis/Insomnia Stop: 02/28/21 13:25 Docusate Sodium (Docusate Sodium 100 Mg Cap) 200 mg PO [facility] Stop: 03/01/21 08:59 Last Admin: 01/30/21 08:04 Dose: 200 mg Documented by: Famotidine (Famotidine 20 Mg Tab) 20 mg PO Q12H PRN PRN Reason: Dyspepsia Stop: 02/28/21 13:25 Hydromorphone HCl (Hydromorphone Inj 0.5 Mg/0.5 Ml Syr) 0.5 mg IV Q3H PRN PRN Reason: MOD pain (scale 4-6) & Pre PT Stop: 02/12/21 13:25 Hydromorphone HCl (Hydromorphone Inj 1 Mg/Ml Syringe) 1 mg IV Q3H PRN PRN Reason: severe pain (scale 7-10) Stop: 02/12/21 13:25 Hydroxyzine HCl (Hydroxyzine Hcl 25 Mg Tab) 25 mg PO Q8H PRN PRN Reason: Anxiety Stop: 02/28/21 13:25 Promethazine HCl 12.5 mg/ (Sodium Chloride) 50.5 mls @ 202 mls/hr IV Q6H PRN PRN Reason: Nausea &/or Vomiting Stop: 02/28/21 13:25 Acetaminophen (Ofirmev) 1,000 mg in 100 mls @ 400 mls/hr IV Q8H PRN PRN Reason: Pain Rating 1-3 & Pre PT Stop: 02/01/21 13:25 Lorazepam (Ativan) 0.5 mg in 1 mls @ 1 mls/min IV Q8H PRN PRN Reason: Sedation/Anxiety Stop: 02/28/21 13:25 Influenza Virus Vaccine Quadrival (Do Not Administer Flu Vaccine) 1 ea N/A PRN PRN PRN Reason: Notification Stop: 02/28/21 13:25 Lactobacillus Acidoph/Casei/Rhamnos (Advanced Probiotic 1250 Mg Capsule) 2 cap PO QAM JESSICA Stop: 03/01/21 08:59 Last Admin: 01/30/21 08:04 Dose: 2 cap Documented by: Loratadine (Loratadine 10 Mg Tab) 10 mg PO QAM JESSICA Stop: 03/01/21 08:59 Last Admin: 01/30/21 08:04 Dose: 10 mg Documented by: Lorazepam (Lorazepam 0.5 Mg Tab) 0.5 mg PO Q8H PRN PRN Reason: sedation/anxiety Stop: 02/28/21 13:25 Magnesium Hydroxide (Magnesium Hydroxide Susp 30 Ml Udc) 30 ml PO Q24H PRN PRN Reason: Constipation Stop: 02/28/21 13:25 Magnesium Oxide (Magnesium Oxide 400 Mg Tab) 100 mg PO BID [facility] Stop: 02/28/21 20:59 Last Admin: 01/30/21 08:03 Dose: 100 mg Documented by: Metoclopramide HCl (Metoclopramide Hcl Inj 5 Mg/Ml 2 Ml Vial) 10 mg IV Q6H PRN PRN Reason: Nausea &/or Vomiting Stop: 02/28/21 13:25 Last Admin: 01/29/21 15:55 Dose: 10 mg Documented by: Metoprolol Tartrate (Metoprolol Tartrate 25 Mg Tab) 25 mg PO BID [facility] Stop: 02/28/21 20:59 Last Admin: 01/30/21 08:03 Dose: 25 mg Documented by: Multivitamins ([facility]itamin Tab) [facility] Stop: 03/01/21 08:59 Last Admin: 01/30/21 08:03 Dose: 1 tab Documented by: Naloxone HCl (Naloxone Hcl 0.4 Mg/1 Ml Vial/Carp) 0.1 mg IV Q5M PRN PRN Reason: Oversedation/respiratory dep Stop: 02/28/21 13:25 Nitroglycerin (Nitroglycerin Sl 0.4 Mg/Tab Tab) 0.4 mg SL UD PRN; Protocol PRN Reason: Chest Pain Stop: 02/28/21 13:25 Ondansetron HCl (Ondansetron Inj 2 Mg/Ml 2 Ml Vial) 4 mg IV Q6H PRN PRN Reason: Nausea &/or Vomiting Stop: 02/28/21 13:25 Last Admin: 01/30/21 09:33 Dose: 4 mg Documented by: Ondansetron HCl (Ondansetron 4 Mg Od Tab) 4 mg PO Q6H PRN PRN Reason: Nausea Stop: 02/28/21 13:25 Oxycodone HCl (Oxycodone Hcl Ir 5 Mg Tab (Immediate Release)) 5 - 10 mg PO Q4H PRN PRN Reason: Pain & Pre PT Stop: 02/12/21 13:25 Last Admin: 01/30/21 08:48 Dose: 10 mg Documented by: Pantoprazole Sodium (Pantoprazole 40 Mg Tab) 40 mg PO QAM [facility] Stop: 03/01/21 08:59 Last Admin: 01/30/21 08:03 Dose: 40 mg Documented by: Pneumococcal Polyvalent Vaccine (Do Not Administer Pneumococcal Vaccine) 1 ea N/A PRN PRN PRN Reason: Notification Stop: 02/28/21 13:25 Senna/Docusate Sodium (Docusate Sodium/Senna 50/8.6mg Tab) 2 tab PO [facility] Stop: 02/28/21 20:59 Last Admin: 01/29/21 20:17 Dose: 2 tab Documented by: Simvastatin (Simvastatin 10 Mg Tab) 10 mg PO [facility] Stop: 02/28/21 20:59 Last Admin: 01/29/21 20:15 Dose: 10 mg Documented by: Sodium Biphosphate/Sodium Phosphate (Sod Phosphate/Sod Biphosphate Enema 132 Ml Btl) 132 ml IL ONE PRN PRN Reason: Constipation Stop: 02/28/21 13:25 Tamsulosin HCl (Tamsulosin Hcl 0.4 Mg Cap) 0.4 mg PO [facility] Stop: 02/28/21 20:59 Last Admin: 01/29/21 20:16 Dose: 0.4 mg Documented by: Tramadol HCl (Tramadol Hcl 50 Mg Tablet) 50 - 100 mg PO Q4H PRN PRN Reason: Moderate-Severe pain & Pre PT Stop: 02/28/21 13:25 Last Admin: 01/30/21 09:33 Dose: 100 mg Documented by: Vitamin D (Cholecalciferol 1,000 Units 25 Mcg Tab) 5,000 units PO [facility] Stop: 03/01/21 08:59 Last Admin: 01/30/21 08:04 Dose: 5,000 units Documented by: Vitamin E (Tocopheryl, Dl-Alpha 100 Units Cap) 200 units PO [facility] Stop: 03/01/21 08:59 Last Admin: 01/30/21 08:04 Dose: 200 units Documented by: Zinc Sulfate (Zinc Sulfate 220 Mg Capsule) 220 mg PO [facility] Stop: 03/01/21 08:59 Last Admin: 01/30/21 08:04 Dose: 220 mg Documented by:
[2021-01-30] MEDS: ASPIRIN 81 MG ECTAB PO SCH (21:01)
[2021-01-30] MEDS: SIMVASTATIN 10 MG TAB PO SCH (21:02)
[2021-01-30] MEDS: TAMSULOSIN HCL 0.4 MG CAP PO SCH (21:02)
[2021-01-30] MEDS: DOCUSATE SODIUM/SENNA 50/8.6MG TAB PO SCH (21:52)
[2021-01-30] MEDS: ACETAMINOPHEN 500 MG TAB PO PRN (23:31)
[2021-01-31] MEDS: ASCORBIC ACID 500 MG TAB PO SCH (07:11)
[2021-01-31] MEDS: CALCIUM CARBONATE 1250MG TAB PO SCH (07:11)
[2021-01-31] MEDS: TOCOPHERYL, DL-ALPHA 100 UNITS CAP PO SCH (07:12)
[2021-01-31] MEDS: PANTOprazole 40 MG TAB PO SCH (07:12)
[2021-01-31] MEDS: CHOLECALCIFEROL 1,000 UNITS 25 MCG TAB PO SCH (07:12)
[2021-01-31] MEDS: MULTIVITAMIN TAB PO SCH (07:12)
[2021-01-31] MEDS: ZINC SULFATE 220 MG CAPSULE PO SCH (07:12)
[2021-01-31] MEDS: DOCUSATE SODIUM 100 MG CAP PO SCH (07:12)
[2021-01-31] MEDS: LORATADINE 10 MG TAB PO SCH (07:12)
[2021-01-31] MEDS: ADVANCED PROBIOTIC 1250 MG CAPSULE PO SCH (07:13)
[2021-01-31] MEDS: MAGNESIUM OXIDE 400 MG TAB PO SCH ×2 (07:13→20:25)
[2021-01-31] MEDS: METOPROLOL TARTRATE 25 MG TAB PO SCH ×2 (07:13→20:24)
[2021-01-31] MEDS ORDERED: bisacodyL 10 MG SUPP PR PRN (08:00)
[2021-01-31 09:24] LABS: Basophils # (auto) 0.02 K/uL (0-0.2); Basophils % (auto) 0.2 %; Eosinophils # (auto) 0.09 K/uL (0-0.5); Eosinophils % (auto) 0.8 %; Hematocrit (blood only) 30.4 % (42-52); Hemoglobin 9.4 g/dL (14.0-18.0); Immature Granulocytes # (auto) 0.04 K/uL (0.00-0.02); Immature Granulocytes % (auto) 0.4 %; Lymphocytes # (auto) 1.04 K/uL (1.2-3.4); Lymphocytes % (auto) 9.3 %; Mean Corpuscular Hemoglobin 24.5 pg (25-34); Mean Corpuscular Hgb Conc 30.9 g/dL (32-36); Mean Corpuscular Volume 79.2 fL (80-100); Mean Platelet Volume 8.1 fL (7.4-10.4); Monocytes % (auto) 8.9 %; Neutrophils # (auto) 9.05 K/uL (1.4-6.5); Neutrophils % (auto) 80.4 %; Platelet Count 440 K/uL (130-400); RDW Coefficient of Variation 16.5 % (11.5-14.5); RDW Standard Deviation 47.3 fL (36.4-46.3); Red Blood Count 3.84 M/uL (4.7-6.1); White Blood Count 11.24 K/uL (4.8-10.8)
[2021-01-31 09:41] LABS: BUN Creatinine Ratio 19.4 (10-20); Calcium 9.7 mg/dl (8.5-10.1); Creatinine Clr Calc Pharmacy 81.3 ml/min; Est GFR (African American) 99.4 ml/min; Est GFR (Non-African American) 85.7 ml/min; Potassium 4.1 mmol/L (3.5-5.1)
[2021-01-31] MEDS: traMADol HCL 50 MG TABLET PO PRN ×2 (11:29→18:37)
--- NOTE | 2021-01-31 12:26 | Orthopedic Progress Note ---
Date of Service January 31, 2021 Assessment & Plan (1) Neurogenic claudication due to lumbar spinal stenosis: Plan: This time we will continue physical therapy monitor NATALIE output anticipate possible discharge home this weekend. Admission and Anticipated Discharge Date Admission Date: January 29, 2021 Subjective Back pain much improved. No nausea today. No leg pain. Physical Exam Physical Exam: Patient is in the chair at the bedside. Is good strength testing. Appears comfortable today. Results & Data ([facility]) Vital Signs (Past 12 Hours) Vital Signs Temp Pulse Resp BP Pulse Ox 01/31/21 07:04 37.2 C 80 16 142/59 H 93 01/31/21 01:08 37.1 C
[2021-01-31] MEDS: ACETAMINOPHEN 500 MG TAB PO PRN (15:22)
--- NOTE | 2021-01-31 15:24 | Hospitalist Progress Note ---
Date of Service January 31, 2021 Assessment & Plan (1) Status post lumbar surgery: Plan: As below (2) Neurogenic claudication due to lumbar spinal stenosis: Plan: Post op day# 2 S/P L2-L5 decompression and fusion by Dr Jaylene HOOKS #100 mL -pain management per ortho -wound management per ortho -PT/OT as appropriate -DVT prophylaxis per ortho -incentive spirometry -monitor H&H for acute blood loss anemia; preop Hgb: 9.7 -Hemoglobin is 9.4 today (3) CAD (coronary artery disease): Plan: H/O CABG 2018 Denies chest pain, shortness of breath Continue aspirin, metoprolol tartrate, simvastatin No cardiac symptoms Electrolytes are normal (4) Aortic stenosis: Plan: S/P bioprosthetic AVR in 2018 Denies any cardiac symptoms (5) Hypertension: Plan: Continue metoprolol tartrate (6) History of kidney cancer: (7) Solitary kidney: Plan: S/p left nephrectomy Preop creatinine: 0.8 (8) Prostate cancer: Plan: S/p prostatectomy, radiation Erleada, Lupron on hold Continue tamsulosin DVT Prophylaxis SCDs per Ortho spine Disposition per primary service Follows with Dr Etienne Nelson in [place], [place] for routine care Admission and Anticipated Discharge Date Admission Date: January 29, 2021 Subjective 01/30/2021 The patient was seen and examined in medical floor He is a status post lumbar decompression fusion and has been doing fine Minimal pain at the back but denies any other symptoms 01/31/2021 The patient was seen and examined in medical floor He has been out of bed on a chair and denies any significant symptoms except some back pain without radiation He has been getting physical therapy Review of Systems Review of Systems: All systems reviewed and are unremarkable except as noted below Musculoskeletal: Back pain Physical Exam Physical Exam: Sitting on a chair without any acute distress Constitutional: well developed, well nourished and + ill appearing Eyes: PERRL, conjunctivae normal, anicteric sclerae ENMT: external ear and nose normal, oropharynx normal Neck: trachea midline, no thyromegaly Respiratory: normal respiratory effort, lungs clear to auscultation Cardiovascular: Rate/Rhythm: regular rate and regular rhythm Extremities: no edema Gastrointestinal (Abdomen): normal bowel sounds, soft, nontender, no hepatosplenomegaly Neurologic: moves all extremities Results & Data Results & Data ([facility]) Vital Signs (Past 12 Hours) Vital Signs Temp Pulse Resp BP Pulse Ox 01/31/21 07:04 37.2 C 80 16 142/59 H 93 Laboratory Results Short CBC 01/31/21 Range/Units 09:04 WBC 11.24 H (4.8-10.8) K/uL Hgb 9.4 L (14.0-18.0) g/dL Hct 30.4 L (42-52) % Plt Count 440 H (130-400) K/uL BMP 01/31/21 09:04 Sodium 134 L Potassium 4.1 Chloride 102 Carbon Dioxide 26 BUN 16 Creatinine 0.81 Glucose 133 H Calcium 9.7 D Medications Administered Current Inpatient Medications Acetaminophen (Acetaminophen 500 Mg Tab) 1,000 mg PO Q8H PRN PRN Reason: MILD Pain Scale 1,2,3 & Pre PT Stop: 02/28/21 13:25 Last Admin: 01/30/21 23:31 Dose: 1,000 mg Documented by: Al Hydrox/Mg Hydrox/Simethicone (Aluminum/Magnesium Susp 30 Ml Udc) 30 ml PO Q6H PRN PRN Reason: Dyspepsia Stop: 02/28/21 13:25 Ascorbic Acid (Ascorbic Acid 500 Mg Tab) 1,[facility] [place] Stop: 03/01/21 08:59 Last Admin: 01/31/21 07:11 Dose: 1,000 mg Documented by: Aspirin (Aspirin 81 Mg Ectab) 81 mg PO [facility] Stop: 02/28/21 20:59 Last Admin: 01/30/21 21:01 Dose: 81 mg Documented by: Bisacodyl (Bisacodyl 10 Mg Supp) 10 mg GA DAILY PRN PRN Reason: Constipation Stop: 03/02/21 07:59 Calcium Carbonate (Calcium Carbonate 1250mg Tab) 1,250 mg PO QAM [facility] Stop: 03/01/21 08:59 Last Admin: 01/31/21 07:11 Dose: 1,250 mg Documented by: Diphenhydramine HCl (Diphenhydramine Capsule 25 Mg Cap) 25 mg PO Q6H PRN PRN Reason: Allergic Rhinitis/Insomnia Stop: 02/28/21 13:25 Docusate Sodium (Docusate Sodium 100 Mg Cap) 200 mg PO QAM [facility] Stop: 03/01/21 08:59 Last Admin: 01/31/21 07:12 Dose: 200 mg Documented by: Famotidine (Famotidine 20 Mg Tab) 20 mg PO Q12H PRN PRN Reason: Dyspepsia Stop: 02/28/21 13:25 Hydromorphone HCl (Hydromorphone Inj 0.5 Mg/0.5 Ml Syr) 0.5 mg IV Q3H PRN PRN Reason: MOD pain (scale 4-6) & Pre PT Stop: 02/12/21 13:25 Hydromorphone HCl (Hydromorphone Inj 1 Mg/Ml Syringe) 1 mg IV Q3H PRN PRN Reason: severe pain (scale 7-10) Stop: 02/12/21 13:25 Hydroxyzine HCl (Hydroxyzine Hcl 25 Mg Tab) 25 mg PO Q8H PRN PRN Reason: Anxiety Stop: 02/28/21 13:25 Promethazine HCl 12.5 mg/ (Sodium Chloride) 50.5 mls @ 202 mls/hr IV Q6H PRN PRN Reason: Nausea &/or Vomiting Stop: 02/28/21 13:25 Acetaminophen (Ofirmev) 1,000 mg in 100 mls @ 400 mls/hr IV Q8H PRN PRN Reason: Pain Rating 1-3 & Pre PT Stop: 02/01/21 13:25 Lorazepam (Ativan) 0.5 mg in 1 mls @ 1 mls/min IV Q8H PRN PRN Reason: Sedation/Anxiety Stop: 02/28/21 13:25 Influenza Virus Vaccine Quadrival (Do Not Administer Flu Vaccine) 1 ea N/A PRN PRN PRN Reason: Notification Stop: 02/28/21 13:25 Lactobacillus Acidoph/Casei/Rhamnos (Advanced Probiotic 1250 Mg Capsule) 2 cap PO QAM [facility] Stop: 03/01/21 08:59 Last Admin: 01/31/21 07:13 Dose: 2 cap Documented by: Loratadine (Loratadine 10 Mg Tab) 10 mg PO QAM [facility] Stop: 03/01/21 08:59 Last Admin: 01/31/21 07:12 Dose: 10 mg Documented by: Lorazepam (Lorazepam 0.5 Mg Tab) 0.5 mg PO Q8H PRN PRN Reason: sedation/anxiety Stop: 02/28/21 13:25 Magnesium Hydroxide (Magnesium Hydroxide Susp 30 Ml Udc) 30 ml PO Q24H PRN PRN Reason: Constipation Stop: 02/28/21 13:25 Magnesium Oxide (Magnesium Oxide 400 Mg Tab) 100 mg PO BID [facility] Stop: 02/28/21 20:59 Last Admin: 01/31/21 07:13 Dose: 100 mg Documented by: Metoclopramide HCl (Metoclopramide Hcl Inj 5 Mg/Ml 2 Ml Vial) 10 mg IV Q6H PRN PRN Reason: Nausea &/or Vomiting Stop: 02/28/21 13:25 Last Admin: 01/29/21 15:55 Dose: 10 mg Documented by: Metoprolol Tartrate (Metoprolol Tartrate 25 Mg Tab) 25 mg PO BID [facility] Stop: 02/28/21 20:59 Last Admin: 01/31/21 07:13 Dose: 25 mg Documented by: Multivitamins (Multivitamin Tab) 1 tab PO QAM [facility] Stop: 03/01/21 08:59 Last Admin: 01/31/21 07:12 Dose: 1 tab Documented by: Naloxone HCl (Naloxone Hcl 0.4 Mg/1 Ml Vial/Carp) 0.1 mg IV Q5M PRN PRN Reason: Oversedation/respiratory dep Stop: 02/28/21 13:25 Nitroglycerin (Nitroglycerin Sl 0.4 Mg/Tab Tab) 0.4 mg SL UD PRN; Protocol PRN Reason: Chest Pain Stop: 02/28/21 13:25 Ondansetron HCl (Ondansetron Inj 2 Mg/Ml 2 Ml Vial) 4 mg IV Q6H PRN PRN Reason: Nausea &/or Vomiting Stop: 02/28/21 13:25 Last Admin: 01/30/21 09:33 Dose: 4 mg Documented by: Ondansetron HCl (Ondansetron 4 Mg Od Tab) 4 mg PO Q6H PRN PRN Reason: Nausea Stop: 02/28/21 13:25 Oxycodone HCl (Oxycodone Hcl Ir 5 Mg Tab (Immediate Release)) 5 - 10 mg PO Q4H PRN PRN Reason: Pain & Pre PT Stop: 02/12/21 13:25 Last Admin: 01/30/21 08:48 Dose: 10 mg Documented by: Pantoprazole Sodium (Pantoprazole 40 Mg Tab) 40 mg PO [facility] Stop: 03/01/21 08:59 Last Admin: 01/31/21 07:12 Dose: 40 mg Documented by: Pneumococcal Polyvalent Vaccine (Do Not Administer Pneumococcal Vaccine) 1 ea N/A PRN PRN PRN Reason: Notification Stop: 02/28/21 13:25 Senna/Docusate Sodium (Docusate Sodium/Senna 50/8.6mg Tab) 2 tab PO [facility] Stop: 02/28/21 20:59 Last Admin: 01/30/21 21:52 Dose: 2 tab Documented by: Simvastatin (Simvastatin 10 Mg Tab) 10 mg PO [facility] Stop: 02/28/21 20:59 Last Admin: 01/30/21 21:02 Dose: 10 mg Documented by: Sodium Biphosphate/Sodium Phosphate (Sod Phosphate/Sod Biphosphate Enema 132 Ml Btl) 132 ml GA ONE PRN PRN Reason: Constipation Stop: 02/28/21 13:25 Tamsulosin HCl (Tamsulosin Hcl 0.4 Mg Cap) 0.4 mg PO [facility] Stop: 02/28/21 20:59 Last Admin: 01/30/21 21:02 Dose: 0.4 mg Documented by: Tramadol HCl (Tramadol Hcl 50 Mg Tablet) 50 - 100 mg PO Q4H PRN PRN Reason: Moderate-Severe pain & Pre PT Stop: 02/28/21 13:25 Last Admin: 01/31/21 11:29 Dose: 100 mg Documented by: Vitamin D (Cholecalciferol 1,000 Units 25 Mcg Tab) 5,000 units PO [facility] Stop: 03/01/21 08:59 Last Admin: 01/31/21 07:12 Dose: 5,000 units Documented by: Vitamin E (Tocopheryl, Dl-Alpha 100 Units Cap) 200 units PO [facility] Stop: 03/01/21 08:59 Last Admin: 01/31/21 07:12 Dose: 200 units Documented by: Zinc Sulfate (Zinc Sulfate 220 Mg Capsule) 220 mg PO [facility] Stop: 03/01/21 08:59 Last Admin: 01/31/21 07:12 Dose: 220 mg Documented by:
[2021-01-31] MEDS: TAMSULOSIN HCL 0.4 MG CAP PO SCH (20:24)
[2021-01-31] MEDS: SIMVASTATIN 10 MG TAB PO SCH (20:25)
[2021-01-31] MEDS: DOCUSATE SODIUM/SENNA 50/8.6MG TAB PO SCH (20:25)
[2021-01-31] MEDS: ASPIRIN 81 MG ECTAB PO SCH (20:25)
[2021-02-01] MEDS: traMADol HCL 50 MG TABLET PO PRN ×2 (02:01→08:04)
[2021-02-01] MEDS: ACETAMINOPHEN 500 MG TAB PO PRN (08:05)
[2021-02-01] MEDS: TOCOPHERYL, DL-ALPHA 100 UNITS CAP PO SCH (08:11)
[2021-02-01] MEDS: LORATADINE 10 MG TAB PO SCH (08:11)
[2021-02-01] MEDS: DOCUSATE SODIUM 100 MG CAP PO SCH (08:11)
[2021-02-01] MEDS: CALCIUM CARBONATE 1250MG TAB PO SCH (08:11)
[2021-02-01] MEDS: MULTIVITAMIN TAB PO SCH (08:11)
[2021-02-01] MEDS: METOPROLOL TARTRATE 25 MG TAB PO SCH (08:11)
[2021-02-01] MEDS: MAGNESIUM OXIDE 400 MG TAB PO SCH (08:11)
[2021-02-01] MEDS: ASCORBIC ACID 500 MG TAB PO SCH (08:12)
[2021-02-01] MEDS: PANTOprazole 40 MG TAB PO SCH (08:12)
[2021-02-01] MEDS: ADVANCED PROBIOTIC 1250 MG CAPSULE PO SCH (08:12)
[2021-02-01] MEDS: ZINC SULFATE 220 MG CAPSULE PO SCH (08:12)
[2021-02-01] MEDS: CHOLECALCIFEROL 1,000 UNITS 25 MCG TAB PO SCH (08:12)
--- NOTE | 2021-02-01 10:35 | Discharge Summary ---
Date of Service February 01, 2021 Admission HPI Per Admitting Provider This is a 75-year-old male presents with chronic persistent back and bilateral leg pain. After failing course of nonoperative care is here for surgical intervention. Principal Diagnosis Lumbar spinal stenosis with neurogenic claudication Discharge Data Allergies Allergy/AdvReac Type Severity Reaction Status Date / Time Penicillins Allergy Intermediate HALLUCINATI Verified 01/29/21 07:38 ONS Consultations 01/29/21 13:26 Consult Hospitalist Routine Procedures Performed Operation Date: 01/29/21 09:05 Actual Procedures p L3-L5 Decompression Fusion with Insertion of Interbody, Application of Bone Morphogenetic Protein, Spinal Cord Monitoring(Not Applicable) - Christophe Mariee DO Ordered Studies 01/29/21 09:05 FL lumbar spine 2-3V Routine Hospital Course (1) Neurogenic claudication due to lumbar spinal stenosis: Patient with lumbar decompression fusion tolerated so was taken to orthopedic for postop labor postop day 1 he began physical therapy progressed postop day #2 on postop day #3 is quite comfortable ambulating well NATALIE drain decreasing probably. Excellent strength testing. Socially discharged home. Discharge orders instructions from the chart for further review. Total Time Total Time Spent Total Time Spent (In Minutes): 20 minutes Discharge Plan Discharge Items Patient Disposition: Home - Self-Care Reason For Visit: Spinal Stenosis, Lumbar reqion without Neurogenic Discharge Diagnosis: Lumbar spinal stenosis with neurogenic claudication Activity: As commented below Non-emergency contact: Primary Care Provider Call non-emergency contact if: you have any medication questions Follow-up/Referrals: Etienne Nelson D.O. [Primary Care Provider] - Diet: Regular Addtl Attending Provider Instructions: ACTIVITY RECOMMENDATIONS: SELF CARE INSTRUCTIONS AFTER THORACIC/LUMBAR FUSIONS 1. You may walk to your tolerance. It is good exercise for your legs and back. Expect some back and intermittent leg aches and pains. 2. You may perform "counter-top" level activities (make a sandwich, theo with a project, etc.). 3. No bending or lifting of more than 10 pounds or back twisting of any nature (roll like a log when turning in bed). 4. You may ride in a car for 20-30 minutes at a time. No driving until after your first visit with your doctor. 5. Frequent changes of position and restricting sitting to 30 minutes at a time will help limit the amount of back spasms and stiffness you may experience. 6. You may discontinue the use of ambulatory aids (cane, crutches, etc.) once your strength and confidence allow. 7. You may marine equipment engineer the shower and let water strike your incision when you arrive home at least once daily. Do not take a tub bath, sit in a hot tub or go into a swimming pool until after your first recheck in the office. SPECIAL CARE INSTRUCTIONS: VERY IMPORTANT TO READ AND REVIEW A. Your surgical incision has been closed with a cosmetic suture under the skin that will dissolve in about 6 weeks. In 14 days, you can use a pair of clean scissors and cut the suture that is left outside of the skin at the ends of your incision. 1. The small skin tapes can be removed 7 days after surgery if they have not fallen off by that point. 2. You may keep the wound open to air as much as possible to promote healing after post-op day number 5 unless told otherwise by your doctor. 3. If you think the wound looks like it is becoming infected (redness or worsening drainage) and/or you are experiencing fever, chill or worsening back pain and muscle spasms, contact the office so that we may evaluate you as soon as possible. B. Complications are uncommon, but please contact us if you have any signs or symptoms of: 1. wound infection (fever higher than 102.5 degrees F, redness, separation of wound, drainage, or increasing pain from the incision) 2. blood clots in legs (pain, swelling, redness and warmth in legs) 3. urinary tract infection (fever higher than 102.5 degrees F, burning upon urination or increased frequency of urination) 4. nerve problems (inability to walk on your toes or heels, numbness, loss of bowel or bladder control) 5. any other symptoms that concern you C. Please call the office at if you have any concerns or questions about your operation or recovery. D. No smoking! Smoking drastically decreases the chance of a solid fusion. E. Do not take any anti-inflammatory medications (Indocin, Advil, Motrin, Aspirin, Naprosyn, etc.) as these may inhibit the chance of a solid fusion. Tylenol is okay to take for pain. MANAGING PAIN AFTER SPINAL SURGERY 1. Narcotic medication is intended for short-term use and will be provided for surgical pain. Surgical pain usually lasts for a period of 4-6 weeks. Narcotic medication includes Percocet, Vicodin, Darvocet, Tylenol #3 or Lortab. 2. Longer-term pain is more appropriately treated with non-narcotic medication such as Tylenol ES. 3. Muscle spasm is not appropriately treated with narcotics. Muscle relaxers such as Soma, Flexeril or Skelaxin can be used along with Tylenol ES. 4. Remember that we all live with some "aches and pains". This is not unusual or uncommon after an injury or as we get older. a. Back pain is expected and may include muscle spasms for 4 to 6 weeks after surgery. The pain should gradually improve. If the pain worsens for no apparent reason, please contact the office. b. Intermittent leg pain may also be experienced and should not be concerned about unless it worsens for no apparent reason. If so, please contact the office. 5. We will provide appropriate medication within the normal guidelines of their prescribed use. We will also be very cautious and aware of potential abuse and extended duration of patients' medication needs. a. Pain medications are for your comfort and to assist with sleep and rest so that the tissue can heal. They are not provided in order to return to normal activity and should not be used through the day. To do so or worsening pain at night can result from ongoing tissue damage and development of tolerance to the prescribed medicine. 6. Please allow 2-3 days to process refills. Prescriptions will not be mailed but must be picked up at the office. FOLLOW UP VISIT: Keep your scheduled follow-up appointment. Any questions, please call the office at . Pending Studies at Discharge: No Stand-Alone Forms: My [facility] MEEP, Smoking Cessation Medications and DC Order Prescriptions: New tramadol 50 mg tablet 50 mg PO Q6H PRN (Reason: pain, moderate) Qty: 30 RF: 0 oxycodone 5 mg tablet 5 mg PO Q6H PRN (Reason: pain, severe) Qty: 30 RF: 0 Continued multivitamin Tablet 1 tab PO QAM RF: 0 ascorbic acid (vitamin C) [Vitamin C] 1,000 mg Tablet 1 g PO QAM RF: 0 simvastatin 10 mg Tablet 10 mg PO HS RF: 0 tamsulosin 0.4 mg Capsule 0.4 mg PO HS RF: 0 pantoprazole 40 mg Tablet,Delayed Release (Dr/Ec) 40 mg PO QAM RF: 0 magnesium 100 mg Tablet 100 mg PO BID RF: 0 nitroglycerin [Nitrostat] 0.4 mg Tablet, Sublingual 0.4 mg sublingual UD PRN (Reason: Chest Pain) RF: 0 zinc 50 mg Tablet 50 mg PO QAM RF: 0 aspirin 81 mg Tablet 81 mg PO HS RF: 0 docusate sodium [Stool Softener] 100 mg Tablet 200 mg PO QAM RF: 0 loratadine 10 mg Tablet 10 mg PO QAM RF: 0 vitamin E 200 unit Tablet 400 unit PO QAM RF: 0 metoprolol tartrate 25 mg Tablet 25 mg PO BID RF: 0 gqwjwpup-brmi-xakukx-hyalur ac [id number] mg Capsule 1 cap PO BID RF: 0 omega-3 fatty acids-fish oil 684-1,200 mg Capsule,Delayed Release(Dr/Ec) 2 cap PO QAM RF: 0 acai siddiqi extract 500 mg Capsule 1,000 mg PO QAM RF: 0 cholecalciferol (vitamin D3) [Vitamin D3] 125 mcg (5,000 unit) Tablet 125 mcg PO QAM RF: 0 Super Probiotic 20 billion cell Capsule 1 cap PO QAM RF: 0 Lupron Depot (6 Month) 45 mg Syringe Kit 45 mg IM UD RF: 0 Erleada 60 mg Tablet 60 mg PO TID RF: 0 calcium 500 mg Tablet 500 mg PO QAM RF: 0 Discharge Orders: Discharge Order (Routine); Ordered 02/01/21 Ordered By: Christophe Mariee Admission Data Admit Date/Time: 01/29/21 11:59 Attending Provider: Christophe Mariee Admit Provider: Christophe Mariee Primary Care Provider: Etienne Nelson. Other Providers: Kristen Gómez ; Karime Olivo
--- NOTE | 2021-02-01 15:37 | Hospitalist Progress Note ---
Date of Service February 01, 2021 Assessment & Plan (1) Status post lumbar surgery: Plan: As below (2) Neurogenic claudication due to lumbar spinal stenosis: Plan: Post op day# 3 S/P L2-L5 decompression and fusion by Dr Jaylene HOOKS #100 mL -pain management per ortho -wound management per ortho -PT/OT as appropriate -DVT prophylaxis per ortho -incentive spirometry -monitor H&H for acute blood loss anemia; preop Hgb: 9.7 -Hemoglobin is 9.4 today 01/31/2021 -Medically stable to be discharged (3) CAD (coronary artery disease): Plan: H/O CABG 2018 Denies chest pain, shortness of breath Continue aspirin, metoprolol tartrate, simvastatin No cardiac symptoms Electrolytes are normal No acute cardiac symptoms (4) Aortic stenosis: Plan: S/P bioprosthetic AVR in 2018 Denies any cardiac symptoms (5) Hypertension: Plan: Continue metoprolol tartrate (6) History of kidney cancer: (7) Solitary kidney: Plan: S/p left nephrectomy Preop creatinine: 0.8-remains stable (8) Prostate cancer: Plan: S/p prostatectomy, radiation Erleada, Lupron on hold Continue tamsulosin DVT Prophylaxis SCDs per Ortho spine Disposition per primary service Follows with Dr Etienne Nelson in [place], [place] for routine care Admission and Anticipated Discharge Date Admission Date: January 29, 2021 Subjective 01/30/2021 The patient was seen and examined in medical floor He is a status post lumbar decompression fusion and has been doing fine Minimal pain at the back but denies any other symptoms 01/31/2021 The patient was seen and examined in medical floor He has been out of bed on a chair and denies any significant symptoms except some back pain without radiation He has been getting physical therapy 02/01/2021 The patient was seen and examined in the medical floor He has been getting physical therapy and the pain is almost gone He will be discharged this afternoon Review of Systems Review of Systems: All systems reviewed and are unremarkable except as noted below Musculoskeletal: Back pain Physical Exam Physical Exam: Sitting on a chair without any acute distress Constitutional: well developed, well nourished and + ill appearing Eyes: PERRL, conjunctivae normal, anicteric sclerae ENMT: external ear and nose normal, oropharynx normal Neck: trachea midline, no thyromegaly Respiratory: normal respiratory effort, lungs clear to auscultation Cardiovascular: Rate/Rhythm: regular rate and regular rhythm Extremities: no edema Gastrointestinal (Abdomen): normal bowel sounds, soft, nontender, no hepatosplenomegaly Musculoskeletal: Minimal back pain Neurologic: moves all extremities Lymphatic: no cervical or axillary lymphadenopathy Results & Data Results & Data ([facility]) Vital Signs (Past 12 Hours) Vital Signs Temp Pulse Pulse Resp BP BP Pulse Ox 02/01/21 10:45 37.2 C 75 85 18 155/55 H 144/75 H 96 02/01/21 08:09 37.2 C 85 18 144/75 H 96
== END 2021-02-01 13:10 | disposition home or self-care (01) | DRG 455 ==
LOC: ASU 07:06 → 3N 11:59